=== PATIENT | female | born 1935 | race Caucasian/White ===

== ENCOUNTER 2023-11-16 16:23 | Observation (INO) | payer OTHER, MEDICARE ==
[2023-11-16 17:54] VITALS: BMI 27.3
[2023-11-16 20:02] LABS: VENOUS BASE EXCESS -2.6 mmol/L (-2-2); VENOUS O2 SATURATION 80.6 % (70-80); VENOUS PCO2 32.2 mmHg (38-52); VENOUS PH 7.431 (7.310-7.410)
[2023-11-16 20:07] LABS: BASO % 0.7 % (0-2.0); EOS % 0.1 % (0-4.5); HEMATOCRIT 35.5 % (32.4-45.2); HEMOGLOBIN 11.5 GM/dL (10.7-15.3); LYMPH % 6.7 % (8-40); MCH 32.7 pg (25.7-33.7); MCHC 32.4 g/dl (32.0-36.0); MEAN PLT VOLUME 8.1 fl (7.5-11.1); MONO % 9.6 % (3.8-10.2); NEUT % 82.9 % (42.8-82.8); PLATELET COUNT 155 10^3/uL (134-434); RBC 3.51 M/mm3 (3.60-5.2)
[2023-11-16 20:30] LABS: POTASSIUM 4.4 mmol/L (3.5-5.1)
[2023-11-16 20:31] LABS: ALBUMIN 2.7 g/dl (3.4-5.0); CALCIUM 9.5 mg/dL (8.5-10.1)
[2023-11-16 20:35] LABS: CREATININE 1.1 mg/dL (0.55-1.3)
[2023-11-16 20:36] LABS: BILIRUBIN,TOTAL 0.9 mg/dL (0.2-1); TOT PROT 5.7 g/dl (6.4-8.2)
[2023-11-16 20:38] LABS: LACTIC ACID 4.8 mmol/L (0.4-2.0)
[2023-11-16 20:39] LABS: N-TERMINAL BNP 6883.9 pg/ml (5-450)
[2023-11-16] MEDS ORDERED: PIPERACILLIN/TAZOB 4.5 GM 4.5 GM/100 ML BAG IVPB ONE (21:11)
[2023-11-16] MEDS ORDERED: FUROSEMIDE 40 MG/4 ML INJECTABLE VIAL ONE (21:11)
[2023-11-16] MEDS ORDERED: ACETAMINOPHEN INJECTION 100 ML IVPB ONE (21:12)
[2023-11-16] MEDS: ACETAMINOPHEN 1000 MG/100 ML BAG IVPB ONE (21:52)
[2023-11-16] MEDS: FUROSEMIDE 40 MG/4 ML INJECTABLE VIAL IVPUSH ONE (21:52)
[2023-11-16 23:02] LABS: ANISOCYTOSIS 1+; MACROCYTOSIS 1+; PLATELET ESTIMATE NORMAL
[2023-11-17] MEDS: PIPERACILLIN/TAZOB 4.5 GM 4.5 GM in DEXTROSE 5%-WATER 100 ML IVPB ONE (00:10)
[2023-11-17] MEDS ORDERED: VANCOMYCIN 1 GRAM (PRE-DOCKED) 1,000 MG/250 ML BAG IVPB ONE (00:12)
[2023-11-17] MEDS ORDERED: MORPHINE SULFATE 2 MG/ML SYRINGE ONE (00:12)
[2023-11-17] MEDS: morphine CARPU-JECT 2 MG/1 ML DISP.SYRIN IVPUSH ONE (00:29)
[2023-11-17] MEDS: VANCOMYCIN 1,000 MG in DEXTROSE 5%-WATER - 250 ML IVPB ONE (00:29)
[2023-11-17] MEDS ORDERED: morphine SULFATE 4 MG/ML VIAL IVPUSH PRN (00:36)
[2023-11-17] MEDS: morphine SULFATE 4 MG/ML VIAL IVPUSH PRN (08:16)
[2023-11-17 09:04] VITALS: TEMP 99.3
[2023-11-17] MEDS ORDERED: ENOXAPARIN NA (PORCINE) 40 MG/0.4 ML DISP.SYRIN SQ SCH (10:00)
[2023-11-17] MEDS ORDERED: MORPHINE SULFATE 2 MG/ML SYRINGE IVPUSH PRN ×2 (12:49→12:51)
[2023-11-17 18:14] VITALS: BP 98/67; PULSE 153; RESP 31
== END 2023-11-17 18:15 | disposition short-term general hospital (02) ==
LOC: JER 16:23 → INTOOBSV 21:08 → JERBED 21:08 → OBSVTOIN 21:08 → UNDOADMOB 21:08 → JERBED 22:18
PROVIDERS: ADMIT Internal Medicine; ATTEND Nurse Practitioner
PROC: 3E033NZ Introduction of Analgesics, Hypnotics, Sedatives into Peripheral Vein, Percutaneous Approach (ICD-10-PCS; principal; 2023-11-16)
PROC: 3E0333Z Introduction of Anti-inflammatory into Peripheral Vein, Percutaneous Approach (ICD-10-PCS; 2023-11-16)
PROC: 3E03329 Introduction of Other Anti-infective into Peripheral Vein, Percutaneous Approach (ICD-10-PCS; 2023-11-16)
PROC: 3E033GC Introduction of Other Therapeutic Substance into Peripheral Vein, Percutaneous Approach (ICD-10-PCS; 2023-11-16)
DX: C53.9 Malignant neoplasm of cervix uteri, unspecified (principal); C83.30 Diffuse large B-cell lymphoma, unspecified site; I50.33 Acute on chronic diastolic (congestive) heart failure; R41.82 Altered mental status, unspecified; Z51.5 Encounter for palliative care; Z88.8 Allergy status to other drugs, medicaments and biological substances
CPT/HCPCS: 0241U-QW; 36415; 71045-TC-FY; 80053; 82803; 83605; 83880; 84484; 85025; 86850; 86900; 86901; 87040; 96365; 96368; 96375; 96376; 99285-25; G0378; J0131